=== PATIENT | female | born 2000 | race African-American/Black ===

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

== ENCOUNTER → 2021-01-01 16:52 | Observation (INO) ==
[2021-01-01 16:13] LABS: Basophils % 0.1 %; Eosinophils # 0.1 K/mcL (0.0-0.6); Eosinophils % 0.3 %; Hematocrit 31.6 % (35.3-44.9); Hemoglobin 9.6 g/dL (11.5-15.4); Immature Granulocytes % 1.1 % (0-4); Lymphocytes # 2.4 K/mcL (0.6-4.6); Lymphocytes % 15.3 %; Mean Corpuscular HGB Conc 30.4 g/dL (31.6-35.5); Mean Corpuscular Hemoglobin 23.4 pg (28.0-33.3); Mean Corpuscular Volume 76.9 fL (83.0-100.0); Mean Platelet Volume 11.2 fL (9.4-12.4); Monocytes # 1.5 K/mcL (0.0-1.3); Monocytes % 9.1 %; Neutrophils # 11.8 K/mcL (1.6-8.9); Nucleated Red Blood Cells 0.1 /100 WBC (0); Platelet Count 275 K/mcL (140-400); Red Blood Count 4.11 M/mcL (3.82-4.97); Red Cell Distribution Width 17.7 % (11.5-14.5); Segmented Neutrophils % 74.1 %
[2021-01-01 16:18] LABS: Protein/Creatinine Ratio,Urine 0.44 mg/mg (0.00-0.20)
[2021-01-01 16:28] LABS: Alanine Aminotransferase 31 Units/L (7-52); Aspartate Amino Transferase 35 Units/L (13-39); BUN/Creatinine Ratio 12 (6-26); Blood Urea Nitrogen 6 mg/dL (6-20); Lactate Dehydrogenase 204 Units/L (140-271); Uric Acid 4.3 mg/dL (2.3-7.6); eGFR For African Americans > 60; eGFR For Non-African Americans > 60
[2021-01-01 16:33] LABS: Bacteria,Urine Few per hpf (None-Few); Bilirubin,Urine Negative (Negative); Blood,Urine Negative (Negative); Clarity,Urine Clear (Clear); Color,Urine Yellow (Yellow); Glucose,Urine (UA) Normal (Normal); Ketones,Urine Negative (Negative); Leukocyte Esterase,Urine Trace (Negative); Mucus,Urine Few per lpf (None-Few); Nitrite,Urine Negative (Negative); PH,Urine 6.5 pH Units (5.0-8.0); Protein,Urine 30 mg/dL (Neg-Trace); RBC,Urine 0-3 per hpf (0-3); Specific Gravity,Urine 1.018 (1.010-1.025); Squamous Epithelial Cell,Urine Few per hpf (None-Few)
== END | disposition home or self-care (01) ==
LOC: 1NENULAB
PROVIDERS: ADMIT Advanced Practice Midwife; ATTEND Advanced Practice Midwife

== ENCOUNTER → 2021-01-03 16:20 | Observation (INO) ==
[2021-01-03 13:42] LABS: Basophils % 0.1 %; Eosinophils % 0.2 %; Hemoglobin 10.1 g/dL (11.5-15.4); Lymphocytes # 2.5 K/mcL (0.6-4.6); Lymphocytes % 15.2 %; Mean Corpuscular HGB Conc 30.6 g/dL (31.6-35.5); Mean Corpuscular Hemoglobin 23.7 pg (28.0-33.3); Mean Corpuscular Volume 77.5 fL (83.0-100.0); Mean Platelet Volume 10.8 fL (9.4-12.4); Monocytes # 1.5 K/mcL (0.0-1.3); Monocytes % 9.1 %; Neutrophils # 12.1 K/mcL (1.6-8.9); Nucleated Red Blood Cells 0.2 /100 WBC (0); Platelet Count 258 K/mcL (140-400); Red Blood Count 4.26 M/mcL (3.82-4.97); Red Cell Distribution Width 17.9 % (11.5-14.5); Segmented Neutrophils % 74.4 %; White Blood Count 16.2 K/mcL (4.3-11.1)
[2021-01-03 14:00] LABS: Alanine Aminotransferase 43 Units/L (7-52); Aspartate Amino Transferase 43 Units/L (13-39); BUN/Creatinine Ratio 13 (6-26); Blood Urea Nitrogen 7 mg/dL (6-20); Lactate Dehydrogenase 201 Units/L (140-271); Uric Acid 4.1 mg/dL (2.3-7.6); eGFR For African Americans > 60; eGFR For Non-African Americans > 60
[2021-01-03 14:04] LABS: Protein/Creatinine Ratio,Urine 0.53 mg/mg (0.00-0.20)
[2021-01-03 14:13] LABS: Bacteria,Urine Few per hpf (None-Few); Bilirubin,Urine Negative (Negative); Blood,Urine Negative (Negative); Clarity,Urine Turbid (Clear); Color,Urine Yellow (Yellow); Glucose,Urine (UA) Normal (Normal); Ketones,Urine Negative (Negative); Leukocyte Esterase,Urine Negative (Negative); Mucus,Urine Few per lpf (None-Few); Nitrite,Urine Negative (Negative); Protein,Urine 30 mg/dL (Neg-Trace); RBC,Urine 0-3 per hpf (0-3); Specific Gravity,Urine 1.017 (1.010-1.025); Squamous Epithelial Cell,Urine Few per hpf (None-Few); Urobilinogen,Urine Normal (Normal)
== END | disposition home or self-care (01) ==
LOC: 1NENULAB
PROVIDERS: ADMIT Registered Nurse; ATTEND Registered Nurse

== ENCOUNTER 2021-01-05 21:44 | Observation (INO) ==
[2021-01-06 00:13] LABS: Protein/Creatinine Ratio,Urine 0.6 mg/mg (0.00-0.20)
[2021-01-06 00:24] LABS: Alanine Aminotransferase 52 Units/L (7-52); Aspartate Amino Transferase 46 Units/L (13-39); BUN/Creatinine Ratio 10 (6-26); Blood Urea Nitrogen 5 mg/dL (6-20); Lactate Dehydrogenase 219 Units/L (140-271); Uric Acid 4.6 mg/dL (2.3-7.6); eGFR For African Americans > 60; eGFR For Non-African Americans > 60
[2021-01-06 00:27] LABS: Basophils % 0.2 %; Eosinophils # 0.1 K/mcL (0.0-0.6); Eosinophils % 0.3 %; Hemoglobin 9.6 g/dL (11.5-15.4); Immature Granulocytes % 1.1 % (0-4); Lymphocytes # 2.8 K/mcL (0.6-4.6); Lymphocytes % 16.6 %; Mean Corpuscular Hemoglobin 23.4 pg (28.0-33.3); Mean Corpuscular Volume 77.9 fL (83.0-100.0); Mean Platelet Volume 11.3 fL (9.4-12.4); Monocytes # 1.5 K/mcL (0.0-1.3); Monocytes % 9.1 %; Neutrophils # 12.2 K/mcL (1.6-8.9); Nucleated Red Blood Cells 0.1 /100 WBC (0); Platelet Count 274 K/mcL (140-400); Red Blood Count 4.11 M/mcL (3.82-4.97); Red Cell Distribution Width 17.9 % (11.5-14.5); Segmented Neutrophils % 72.7 %; White Blood Count 16.8 K/mcL (4.3-11.1)
[2021-01-06] MEDS: Betamethasone Acet/SodPhos 30 MG/5 ML VIAL IM SCH ×2 (01:37→22:57)
[2021-01-06] MEDS ORDERED: *HR* Metformin 500 MG TABLET PO SCH (08:00)
[2021-01-06 10:10] LABS: Basophils % 0.1 %; Eosinophils % 0.1 %; Hematocrit 31.2 % (35.3-44.9); Hemoglobin 9.3 g/dL (11.5-15.4); Lymphocytes # 1.6 K/mcL (0.6-4.6); Lymphocytes % 9.6 %; Mean Corpuscular HGB Conc 29.8 g/dL (31.6-35.5); Mean Corpuscular Hemoglobin 23.1 pg (28.0-33.3); Mean Corpuscular Volume 77.4 fL (83.0-100.0); Mean Platelet Volume 10.6 fL (9.4-12.4); Monocytes # 0.4 K/mcL (0.0-1.3); Monocytes % 2.6 %; Neutrophils # 13.8 K/mcL (1.6-8.9); Nucleated Red Blood Cells 0.2 /100 WBC (0); Platelet Count 242 K/mcL (140-400); Red Blood Count 4.03 M/mcL (3.82-4.97); Red Cell Distribution Width 17.9 % (11.5-14.5); Segmented Neutrophils % 85.6 %; White Blood Count 16.2 K/mcL (4.3-11.1)
[2021-01-06 10:31] LABS: Alanine Aminotransferase 54 Units/L (7-52); Aspartate Amino Transferase 47 Units/L (13-39); BUN/Creatinine Ratio 9 (6-26); Blood Urea Nitrogen 6 mg/dL (6-20); Lactate Dehydrogenase 193 Units/L (140-271); Uric Acid 4.8 mg/dL (2.3-7.6); eGFR For African Americans > 60; eGFR For Non-African Americans > 60
[2021-01-06 20:39] VITALS: TEMP 98.3
[2021-01-06 22:32] VITALS: BP 125/71; PULSE 106; O2SAT 98
== END 2021-01-06 23:10 | disposition home or self-care (01) ==
LOC: 1NENULAB → 1NENUOBS 01-06 02:45
PROVIDERS: ADMIT Obstetrics & Gynecology; ATTEND Obstetrics & Gynecology

== ENCOUNTER 2021-01-08 13:45 | Inpatient (IN) ==
[2021-01-08 10:05] LABS: Hematocrit 31.6 % (35.3-44.9); Hemoglobin 9.3 g/dL (11.5-15.4); Mean Corpuscular HGB Conc 29.4 g/dL (31.6-35.5); Mean Platelet Volume 10.9 fL (9.4-12.4); Nucleated Red Blood Cells 0.9 /100 WBC (0); Platelet Count 269 K/mcL (140-400); Red Blood Count 4.05 M/mcL (3.82-4.97); Red Cell Distribution Width 18.2 % (11.5-14.5); White Blood Count 21.9 K/mcL (4.3-11.1)
[2021-01-08 10:21] LABS: Lymphocytes # 1.1 K/mcL (0.6-4.6); Monocytes # 0.7 K/mcL (0.0-1.3); Neutrophils # 19.5 K/mcL (1.6-8.9)
[2021-01-08 10:22] LABS: Platelet Estimate Normal (Normal)
[2021-01-08 10:24] LABS: Alanine Aminotransferase 116 Units/L (7-52); Aspartate Amino Transferase 85 Units/L (13-39); BUN/Creatinine Ratio 17 (6-26); Blood Urea Nitrogen 9 mg/dL (6-20); Lactate Dehydrogenase 201 Units/L (140-271); Uric Acid 5.2 mg/dL (2.3-7.6); eGFR For African Americans > 60; eGFR For Non-African Americans > 60
[2021-01-08 11:05] LABS: Bilirubin,Urine Negative (Negative); Blood,Urine Negative (Negative); Clarity,Urine Clear (Clear); Color,Urine Light-Yellow (Yellow); Glucose,Urine (UA) Normal (Normal); Ketones,Urine Negative (Negative); Leukocyte Esterase,Urine Negative (Negative); Nitrite,Urine Negative (Negative); PH,Urine 6.5 pH Units (5.0-8.0); Protein,Urine Trace mg/dL (Neg-Trace); Specific Gravity,Urine 1.009 (1.010-1.025); Urobilinogen,Urine Normal (Normal)
[2021-01-08 11:10] LABS: Protein/Creatinine Ratio,Urine 0.54 mg/mg (0.00-0.20)
[2021-01-08] MEDS ORDERED: Ondansetron 4 MG/2 ML VIAL IVP PRN (13:46)
[2021-01-08] MEDS ORDERED: Calcium Gluconate 1,000 MG/10 ML VIAL IVP PRN (13:46)
[2021-01-08] MEDS ORDERED: Metoclopramide 10 MG/2 ML VIAL IVP PRN (13:46)
[2021-01-08] MEDS ORDERED: Famotidine 20 MG/2 ML VIAL IVP PRN (13:46)
[2021-01-08] MEDS ORDERED: Naloxone 0.4 MG/ML INJ IVP PRN (13:46)
[2021-01-08] MEDS ORDERED: Azithromycin 500 MG in 0.9 % Sodium Chloride 250 ML IVPB PRN (13:46)
[2021-01-08] MEDS ORDERED: Lidocaine 1% 20 ML MDV INFILT PRN (13:46)
[2021-01-08] MEDS ORDERED: Ringers Solution, Lactated 1,000 ML IVC SCH (14:00)
[2021-01-08] MEDS: Magnesium Sulf 20 gm/SW 500mL 20 GM/500 ML IV.SOLN IVC SCH (14:20)
[2021-01-08] MEDS: miSOPROStoL 25 MCG TABLET PO PRN ×2 (15:22→20:03)
[2021-01-09] MEDS: Magnesium Sulf 20 gm/SW 500mL 20 GM/500 ML IV.SOLN IVC SCH ×3 (00:27→19:15)
[2021-01-09] MEDS: Oxytocin 20 units/ LR 1000 mL 20 UNIT/1,000 ML BAG IVC SCH ×2 (00:27→19:16)
[2021-01-09] MEDS: *HR* Nalbuphine 10 MG/ML AMPUL IV PRN ×2 (03:07→09:43)
[2021-01-09] MEDS ORDERED: *HR* Labetalol 20 MG/4 ML SYRINGE IVP ONE (08:54)
[2021-01-09] MEDS ORDERED: EPHEDrine 50 MG/ML VIAL IVP PRN (10:30)
[2021-01-09] MEDS ORDERED: Ropivacaine/PF 0.2% 20 ML VIAL EP ONE (10:30)
[2021-01-09] MEDS ORDERED: Epidural Premix (fent/bupiv) 110 ML EP SCH (10:30)
[2021-01-09] MEDS ORDERED: Epidural Premix (fent/bupiv) 110 ML EP ONE (10:33)
[2021-01-09] MEDS ORDERED: *HR* FentaNYL (PF) 100 MCG/2 ML VIAL ONE ×2 (15:38→20:01)
[2021-01-09] MEDS ORDERED: *HR* Metformin 500 MG TABLET PO SCH (22:00)
[2021-01-10] MEDS ORDERED: Ropivacaine/PF 0.2% 20 ML VIAL ONE (01:44)
[2021-01-10] MEDS ORDERED: *HR* FentaNYL (PF) 100 MCG/2 ML VIAL ONE ×2 (01:44→03:31)
[2021-01-10] MEDS ORDERED: Lidocaine/EPI 1:200k 2% PF 20 ML VIAL ONE (03:31)
[2021-01-10] MEDS ORDERED: Diphenoxylate/Atropine 1 TAB TABLET PO ONE (03:47)
[2021-01-10] MEDS ORDERED: Rho Immune Globulin 1,500 UNIT SYRINGE IM PRN (08:24)
[2021-01-10] MEDS ORDERED: Measles/Mumps/Rubella Vacc 0.5 ML VIAL SQ PRN (08:24)
[2021-01-10] MEDS ORDERED: Oxytocin 20 units/ LR 1000 mL 20 UNIT/1,000 ML BAG IVC SCH (08:24)
[2021-01-10] MEDS ORDERED: Calcium Gluconate 1,000 MG/10 ML VIAL ONE (08:33)
[2021-01-10] MEDS ORDERED: Calcium Gluconate 1,000 MG/10 ML VIAL IVP PRN (09:14)
[2021-01-10] MEDS: Prenatal Vit/FA 1 EACH TABLET PO SCH (09:45)
[2021-01-10] MEDS: Magnesium Sulf 20 gm/SW 500mL 20 GM/500 ML IV.SOLN IVC SCH ×2 (09:48→20:21)
[2021-01-10 10:16] LABS: Basophils % 0.1 %; Hematocrit 26.1 % (35.3-44.9); Hemoglobin 8.2 g/dL (11.5-15.4); Immature Granulocytes % 0.8 % (0-4); Lymphocytes # 1.3 K/mcL (0.6-4.6); Lymphocytes % 5.7 %; Mean Corpuscular HGB Conc 31.4 g/dL (31.6-35.5); Mean Corpuscular Hemoglobin 23.8 pg (28.0-33.3); Mean Corpuscular Volume 75.9 fL (83.0-100.0); Mean Platelet Volume 10.7 fL (9.4-12.4); Monocytes # 1.4 K/mcL (0.0-1.3); Monocytes % 6.2 %; Neutrophils # 19.6 K/mcL (1.6-8.9); Nucleated Red Blood Cells 0.1 /100 WBC (0); Platelet Count 223 K/mcL (140-400); Red Blood Count 3.44 M/mcL (3.82-4.97); Red Cell Distribution Width 18.6 % (11.5-14.5); Segmented Neutrophils % 87.2 %; White Blood Count 22.5 K/mcL (4.3-11.1)
[2021-01-10 10:39] LABS: Alanine Aminotransferase 254 Units/L (7-52); Aspartate Amino Transferase 158 Units/L (13-39); BUN/Creatinine Ratio 12 (6-26); Blood Urea Nitrogen 8 mg/dL (6-20); Lactate Dehydrogenase 396 Units/L (140-271); Uric Acid 6.8 mg/dL (2.3-7.6); eGFR For African Americans > 60; eGFR For Non-African Americans > 60
[2021-01-10] MEDS: Ringers Solution, Lactated 1,000 ML IVC SCH (10:46)
[2021-01-10] MEDS: Ibuprofen 600 MG TABLET PO PRN ×2 (10:46→18:19)
[2021-01-11] MEDS: Ringers Solution, Lactated 1,000 ML IVC SCH (01:04)
[2021-01-11 04:50] LABS: Basophils % 0.1 %; Eosinophils # 0.1 K/mcL (0.0-0.6); Eosinophils % 0.2 %; Hematocrit 23.1 % (35.3-44.9); Immature Granulocytes % 1.2 % (0-4); Lymphocytes # 4.1 K/mcL (0.6-4.6); Mean Corpuscular HGB Conc 30.3 g/dL (31.6-35.5); Mean Platelet Volume 10.6 fL (9.4-12.4); Monocytes # 2.6 K/mcL (0.0-1.3); Monocytes % 10.7 %; Nucleated Red Blood Cells 0.1 /100 WBC (0); Platelet Count 241 K/mcL (140-400); Red Blood Count 3.04 M/mcL (3.82-4.97); Red Cell Distribution Width 18.5 % (11.5-14.5); Segmented Neutrophils % 70.8 %; White Blood Count 24.1 K/mcL (4.3-11.1)
[2021-01-11 05:08] LABS: Alanine Aminotransferase 171 Units/L (7-52); Aspartate Amino Transferase 71 Units/L (13-39); BUN/Creatinine Ratio 11 (6-26); Blood Urea Nitrogen 6 mg/dL (6-20); Lactate Dehydrogenase 298 Units/L (140-271); eGFR For African Americans > 60; eGFR For Non-African Americans > 60
[2021-01-11] MEDS ORDERED: Benzocaine/Menthol 56 GM AEROSOL SPRAY TP ONE (07:47)
[2021-01-11] MEDS: Acetaminophen 325 MG TABLET PO PRN ×2 (07:48→20:53)
[2021-01-11] MEDS: Prenatal Vit/FA 1 EACH TABLET PO SCH (07:48)
[2021-01-11] MEDS: Ibuprofen 600 MG TABLET PO PRN ×2 (07:49→17:01)
[2021-01-11] MEDS ORDERED: Ferumoxytol 510 MG in 0.9 % Sodium Chloride 100 ML IVPB ONE (09:17)
[2021-01-11] MEDS: NIFEdipine XL (24 HR) 30 MG TAB.ER.24 PO SCH (17:01)
[2021-01-12 05:46] LABS: Basophils % 0.2 %; Eosinophils # 0.1 K/mcL (0.0-0.6); Eosinophils % 0.5 %; Hematocrit 22.1 % (35.3-44.9); Hemoglobin 6.6 g/dL (11.5-15.4); Immature Granulocytes % 2.7 % (0-4); Lymphocytes # 3.8 K/mcL (0.6-4.6); Lymphocytes % 20.1 %; Mean Corpuscular HGB Conc 29.9 g/dL (31.6-35.5); Mean Corpuscular Hemoglobin 23.2 pg (28.0-33.3); Mean Corpuscular Volume 77.8 fL (83.0-100.0); Mean Platelet Volume 10.7 fL (9.4-12.4); Monocytes # 1.8 K/mcL (0.0-1.3); Monocytes % 9.4 %; Neutrophils # 12.7 K/mcL (1.6-8.9); Nucleated Red Blood Cells 0.2 /100 WBC (0); Platelet Count 229 K/mcL (140-400); Red Blood Count 2.84 M/mcL (3.82-4.97); Red Cell Distribution Width 18.2 % (11.5-14.5); Segmented Neutrophils % 67.1 %
[2021-01-12 06:09] LABS: Alanine Aminotransferase 123 Units/L (7-52); Aspartate Amino Transferase 44 Units/L (13-39); BUN/Creatinine Ratio 20 (6-26); Blood Urea Nitrogen 10 mg/dL (6-20); Lactate Dehydrogenase 210 Units/L (140-271); Uric Acid 5.4 mg/dL (2.3-7.6); eGFR For African Americans > 60; eGFR For Non-African Americans > 60
[2021-01-12] MEDS: Prenatal Vit/FA 1 EACH TABLET PO SCH (07:41)
[2021-01-12] MEDS: Ibuprofen 600 MG TABLET PO PRN (07:41)
[2021-01-12] MEDS: NIFEdipine XL (24 HR) 30 MG TAB.ER.24 PO SCH (08:02)
[2021-01-12] MEDS ORDERED: 0.9 % Sodium Chloride 250 ML IVC SCH (10:00)
[2021-01-12 14:43] VITALS: BP 135/86; PULSE 99; TEMP 98.3; O2SAT 99
== END 2021-01-12 16:53 | disposition home or self-care (01) | DRG 560 ==
LOC: 1NENULAB → 1NENUOBS 01-10 08:06
PROVIDERS: ADMIT Obstetrics & Gynecology; ATTEND Obstetrics & Gynecology